=== PATIENT | male | born 1985 | race Caucasian/White ===

== ENCOUNTER 2020-02-11 18:14 | Emergency (ER) | payer SELFPAY ==
[2020-02-11 18:51] VITALS: BP 128/66; PULSE 67; TEMP 97.5; BMI 26.6
== END 2020-02-11 19:41 | disposition home or self-care (01) ==
LOC: JER 18:14
DX: S46.011A Strain of muscle(s) and tendon(s) of the rotator cuff of right shoulder, initial encounter (principal); S40.012A Contusion of left shoulder, initial encounter
CPT/HCPCS: 73030-TC-LT-FY; 73030-TC-RT-FY; 99284-25